=== PATIENT | female | born 1960 | race Caucasian/White ===

== ENCOUNTER 2020-05-30 12:02 | Day surgery (SDC) | payer MEDICARE ==
[2020-05-30] VITALS (9 sets, daily range): BP systolic 105–123; BP diastolic 58–83; PULSE 72–85; TEMP 98.5
[~2020-05-30] VITALS: Ht 152.4 cm; Wt 84.4 kg
[2020-05-30] MEDS ORDERED: ASPIRIN E.C. 8181 MG PO (12:14)
[2020-05-30] MEDS ORDERED: ZESTRIL 20MG TA20 MG PO (12:15)
[2020-05-30] MEDS ORDERED: LASIX 20MG TABL20 MG PO (12:15)
[2020-05-30] MEDS ORDERED: LEXAPRO 10MG10 MG PO (12:16)
[2020-05-30] MEDS ORDERED: GLUCOPHAGE1000 MG PO (12:16)
[2020-05-30] MEDS ORDERED: SYNTHROID 0.0.025 MG PO (12:18)
[2020-05-30] MEDS ORDERED: LIPITOR 40MG TA40 MG PO (12:18)
[2020-05-30 12:45] LABS: HEMATOCRIT 42.4 % (37.0-47.0); HEMOGLOBIN 14.5 g/dl (12.5-16.0); MEAN CELL VOLUME 89 fl (80.0-100.0); MEAN CORPUSCULAR HEMOGLOBIN 30 pg (27.0-31.0); MEAN CORPUSCULAR HGB CONC 34 g/dl (33.0-37.0); MEAN PLATELET VOLUME 10.6 fl (7.4-10.4); PLATELET COUNT 223 K/mm3 (130-400); RED BLOOD COUNT 4.79 M/mm3 (4.10-5.30); REDCELL DISTRIBUTION WIDTH-CV 13.9 % (11.5-14.5)
[2020-05-30 12:51] LABS: PROTHROMBIN TIME 11.6 SECONDS (9.7-12.8)
[2020-05-30 12:53] LABS: CALCIUM 9.9 mg/dL (8.4-10.2); CREATININE, serum 0.63 (0.52-1.25); POTASSIUM 4.2 mmol/L (3.4-5.0)
[2020-05-30 12:54] LABS: PARTIAL THROMBOPLASTIN TIME 29.5 SECONDS (26.0-37.0)
--- NOTE | 2020-05-30 14:30 | NUR ---
Report from Hailee APONTE. Pt transferred from bolt labeler by bed. Alert and oriented, denies pain at this time, and bedside. Right Tband with 12 cc air, good pulses , and cap refill < 3 secs noted. VSS. Will continue to monitor
--- NOTE | 2020-05-30 17:15 | NUR ---
12 cc air released from right Tband and dressing applied to site. INT discontinued intact.
== END 2020-05-31 17:33 | disposition home or self-care (01) ==
LOC: COL.CAR 12:02
PROVIDERS: Internal Medicine Interventional Cardiology
DX: I25.10 Atherosclerotic heart disease of native coronary artery without angina pectoris (principal); I49.3 Ventricular premature depolarization; I11.0 Hypertensive heart disease with heart failure; I50.9 Heart failure, unspecified; I50.22 Chronic systolic (congestive) heart failure; E78.5 Hyperlipidemia, unspecified; E11.42 Type 2 diabetes mellitus with diabetic polyneuropathy; I25.2 Old myocardial infarction; Z20.822 Contact with and (suspected) exposure to COVID-19; G47.33 Obstructive sleep apnea (adult) (pediatric); F17.210 Nicotine dependence, cigarettes, uncomplicated; Z79.899 Other long term (current) drug therapy; Z79.84 Long term (current) use of oral hypoglycemic drugs; Z79.82 Long term (current) use of aspirin; Z80.0 Family history of malignant neoplasm of digestive organs; Z95.818 Presence of other cardiac implants and grafts
CPT/HCPCS: C1769; J1644; J2250; J3010; Q9967